=== PATIENT | male | born 1965 | race Caucasian/White ===

== ENCOUNTER 2017-03-16 09:51 | Emergency (ER) | payer OTHER ==
[~2017-03-16] VITALS: Ht 182.9 cm; Wt 103.0 kg
[~2017-03-16 09:51] MED LIST: AMOX1TAB12 PO; OXYC5TAB3 PO
[2017-03-16 09:59] VITALS: BP 120/89
== END 2017-03-16 10:26 | disposition home or self-care (01) ==
LOC: ED 10:20
DX: S01.01XA Laceration without foreign body of scalp, initial encounter (principal); S01.81XA Laceration without foreign body of other part of head, initial encounter; Y04.8XXA Assault by other bodily force, initial encounter; Y93.89 Activity, other specified; Y92.488 Other paved roadways as the place of occurrence of the external cause; Y99.8 Other external cause status
CPT/HCPCS: 12002

== ENCOUNTER 2017-07-04 22:06 | Emergency (ER) | payer OTHER ==
[~2017-07-04] VITALS: Ht 180.3 cm; Wt 100.0 kg
[2017-07-04 22:47] LABS: HEMATOCRIT 49.1 % (39.2-51.8); HEMOGLOBIN 16.8 g/dL (13.7-18.0)
[2017-07-04 22:56] LABS: ASPARTATE AMINO TRANSFERASE 34 U/L (15-37); BLOOD UREA NITROGEN 9 mg/dL (7-18)
[2017-07-04] MEDS ORDERED: SODIUM CHLORIDE 0.9% 1,000ML IVBOLUS ONE (23:30)
[2017-07-04] MEDS ORDERED: SODIUM CHLORIDE FLUSH 10ML SYR IVF ONE (23:30)
[2017-07-05 05:20] VITALS: BP 121/82
== END 2017-07-05 02:20 | disposition home or self-care (01) ==
LOC: ED 07-05 00:58
DX: S06.5X9A Traumatic subdural hemorrhage with loss of consciousness of unspecified duration, initial encounter (principal); F10.229 Alcohol dependence with intoxication, unspecified; W06.XXXA Fall from bed, initial encounter; Y93.89 Activity, other specified; Y92.89 Other specified places as the place of occurrence of the external cause; Y99.8 Other external cause status
CPT/HCPCS: 36415; 70450; 80053; 80307; 85025; 99285; G0479

== ENCOUNTER 2018-05-03 20:43 | Emergency (ER) | payer MEDICAID ==
[~2018-05-03] VITALS: Ht 188 cm; Wt 125.0 kg
[~2018-05-03 20:43] MED LIST changes: +LEVE500T53 PO
[2018-05-04 00:06] VITALS: BP 127/88
== END 2018-05-04 00:13 | disposition home or self-care (01) ==
LOC: ED 23:56
DX: F10.220 Alcohol dependence with intoxication, uncomplicated (principal); Z59.0 Homelessness
CPT/HCPCS: 70450; 70486; 99284

== ENCOUNTER 2018-10-18 14:56 | Emergency (ER) | payer MEDICAID ==
[~2018-10-18] VITALS: Ht 188 cm; Wt 110.0 kg
[2018-10-18] MEDS ORDERED: ALBUTEROL/IPRATROPIUM 2.5MG/0.5MG, 3 ML ONE (15:17)
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
[2018-10-18] MEDS ORDERED: SODIUM CHLORIDE FLUSH 10ML SYR IVF ONE (15:30)
[2018-10-18] MEDS ORDERED: ALBUTEROL/IPRATROPIUM 2.5MG/0.5MG, 3 ML NPPB ONE (15:30)
[2018-10-18 15:35] LABS: BASOPHILS # (AUTO) 0.05 x10^3/uL (0-0.1); BASOPHILS % (AUTO) 1 % (0-1); EOSINOPHILS % (AUTO) 1 % (1-7); LYMPHOCYTES # (AUTO) 3.76 x10^3/uL (1-3.4); LYMPHOCYTES % (AUTO) 45 % (22-44); MD NO; MEAN CORPUSCULAR HEMOGLOBIN 32.1 pg (27.5-34.5); MEAN CORPUSCULAR VOLUME 94.7 fL (81-97); MONOCYTES # (AUTO) 0.79 x10^3/uL (0.2-0.8); MONOCYTES % (AUTO) 9 % (2-9); NEUTROPHILS # (AUTO) 3.77 x10^3/uL (1.8-6.8); NEUTROPHILS % (AUTO) 45 % (42-75); PLATELET COUNT 207 x10^3/uL (130-400); RED CELL DISTRIBUTION WIDTH 13.4 % (9.4-14.8)
[2018-10-18 15:48] LABS: ALANINE AMINOTRANSFERASE 35 U/L (12-78); ALBUMIN 3.5 g/dL (3.4-5.0); ANION GAP 9 mmol/L (5-15); CALCIUM 8.1 mg/dL (8.5-10.1); CHLORIDE 100 mmol/L (98-107); CREATININE 0.83 mg/dL (0.7-1.3)
[2018-10-18 15:52] LABS: ALKALINE PHOSPHATASE 65 U/L (45-117); BILIRUBIN,TOTAL 0.5 mg/dL (0.2-1.0); TOTAL PROTEIN 7.5 g/dL (6.4-8.2); TROPONIN I < 0.015 ng/mL (0.000-0.045)
--- NOTE | 2018-10-18 16:25 | NUR ---
PT YELLING INTO HALLWAY, NOT MAKING ANY SENSE. DISCUSSED WITH PT THAT HE NEEDS TO KEEP HIS VOICE DOWN
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
--- NOTE | 2018-10-18 17:57 | NUR ---
PT'S CHART UP FOR RECHECK
[2018-10-18 18:04] VITALS: BP 115/91
--- NOTE | 2018-10-18 18:34 | NUR ---
PT SLEEPING ON GURNEY. RR EVEN AND UNLABORED. PT ON CONT SPO2, BP MONITOR, VSS. AWAITING DISPO
--- NOTE | 2018-10-18 19:44 | NUR ---
PT REFUSING VITAL SIGNS ATT
--- NOTE | 2018-10-18 20:43 | NUR ---
ATTEMPTED TO AMBULATE PT, TOO UNSTEADY ATT.
--- NOTE | 2018-10-18 21:30 | NUR ---
PT CONTINUES TO REFUSE VITAL SIGNS. RESTING ON GURNEY, RR EVEN AND UNLABORED. PT DENIES NEEDS ATT.
[2018-10-18] MEDS ORDERED: BACITRACIN ZINC OINT 500U/GM, 0.9 GM ONE (22:22)
--- NOTE | 2018-10-18 22:41 | NUR ---
PT REFUSING TO LEAVE. SECURITY CALLED TO ESCORT PT OUTSIDE
== END 2018-10-18 22:52 ==
LOC: ED 16:25
DX: F10.120 Alcohol abuse with intoxication, uncomplicated (principal); Z90.89 Acquired absence of other organs
CPT/HCPCS: 36415; 71045; 80053; 83605; 83880; 84484; 85025; 87040; 99284

== ENCOUNTER 2018-10-25 07:55 | Emergency (ER) | payer MEDICAID ==
[~2018-10-25] VITALS: Ht 182.9 cm; Wt 112.1 kg
[2018-10-25] MEDS ORDERED: CEFAZOLIN 1,000 MG ONE (08:16)
[2018-10-25] MEDS ORDERED: DIPH,PERTUSS(ACELL),TET VAC/PF 0.5 ML IM-VACC ONE ×2 (08:16→08:30)
[2018-10-25] MEDS ORDERED: OXYcodone/APAP 5/325MG TABLET ONE (08:23)
[2018-10-25] MEDS ORDERED: CEFAZOLIN 1,000 MG IM ONE (08:30)
[2018-10-25] MEDS ORDERED: OXYcodone/APAP 5/325MG TABLET PO ONE (08:30)
[2018-10-25 08:34] LABS: MEAN CORPUSCULAR HEMOGLOBIN 32.1 pg (27.5-34.5); MEAN CORPUSCULAR HGB CONC 33.8 g/dL (33.2-36.2); MEAN CORPUSCULAR VOLUME 94.9 fL (81-97); PLATELET COUNT 205 x10^3/uL (130-400); RED BLOOD COUNT 4.65 x10^6/uL (4.38-5.82); RED CELL DISTRIBUTION WIDTH 14.9 % (9.4-14.8)
[2018-10-25 08:40] LABS: ALBUMIN 3.5 g/dL (3.4-5.0); ANION GAP 9 mmol/L (5-15); CALCIUM 8.3 mg/dL (8.5-10.1); CHLORIDE 107 mmol/L (98-107); CREATININE 0.79 mg/dL (0.7-1.3)
[2018-10-25 09:10] LABS: BASOPHILS # (AUTO) 0.05 x10^3/uL (0-0.1); BASOPHILS % (AUTO) 0 % (0-1); EOSINOPHILS # (AUTO) 0.09 x10^3/uL (0-0.4); EOSINOPHILS % (AUTO) 1 % (1-7); LYMPHOCYTES # (AUTO) 1.75 x10^3/uL (1-3.4); LYMPHOCYTES % (AUTO) 13 % (22-44); MD SCAN; MONOCYTES # (AUTO) 0.83 x10^3/uL (0.2-0.8); MONOCYTES % (AUTO) 6 % (2-9); NEUTROPHILS # (AUTO) 10.43 x10^3/uL (1.8-6.8); NEUTROPHILS % (AUTO) 79 % (42-75)
--- NOTE | 2018-10-25 09:35 | NUR ---
FIRST CONTACT. DENZEL MIRZA IS DISCHARGING THE PT. FOR THE PRIMARY CARE RN. PT. WAS GIVEN DISCHARGE INSTRUCTIONS AND SCRIPTS WITH UNDERSTANDING VERBALIZED ALONG WITH WILLINGNESS TO COMPLY. PT. WAS GIVEN JUICE AND CRACKERS WELL A CAB SLIP.
[2018-10-25 09:37] VITALS: BP 138/76
== END 2018-10-25 09:39 | disposition home or self-care (01) ==
LOC: ED 08:15
DX: S99.922A Unspecified injury of left foot, initial encounter (principal); L03.116 Cellulitis of left lower limb; Z90.49 Acquired absence of other specified parts of digestive tract; F17.200 Nicotine dependence, unspecified, uncomplicated; X58.XXXA Exposure to other specified factors, initial encounter; Y93.89 Activity, other specified; Y92.009 Unspecified place in unspecified non-institutional (private) residence as the place of occurrence of the external cause; Y99.8 Other external cause status
CPT/HCPCS: 36415; 73630; 80048; 82040; 85025; 90471; 90715; 96372; 99284; J0690